=== PATIENT | male | born 1990 | race Caucasian/White ===

== ENCOUNTER 2018-06-24 13:21 | Emergency (ER) | payer SELFPAY ==
[~2018-06-24] VITALS: Ht 167.6 cm; Wt 71.2 kg
[2018-06-24 13:30] VITALS: Ht 167.6 cm; Wt 71.2 kg
[2018-06-24 14:31] VITALS: BP 129/96
== END 2018-06-24 14:32 | disposition home or self-care (01) ==
LOC: ED 13:21
DX: J36 Peritonsillar abscess (principal)
CPT/HCPCS: J0696; J1100